=== PATIENT | male | born 1990 | race Caucasian/White ===

== ENCOUNTER 2016-12-01 08:18 | Emergency (ER) | payer OTHER ==
[~2016-12-01] VITALS: Ht 180.3 cm; Wt 111.2 kg
[~2016-12-01 08:18] MED LIST: ACYC800T PO; HYDR-3124 PO
[2016-12-01 08:21] VITALS: TEMP 36.7; Ht 180.3 cm; Wt 111.2 kg
--- NOTE | 2016-12-01 08:44 | EMERGENCY ROOM VISIT NOTE ---
History Report prepared by Jarad: Allen Deluca Under the Supervision of: Dr. Kranthi Francisco D.O. First contact with patient: 08:27 Chief Complaint: SWELLING TO EXTREMITY Stated Complaint: SWELLING TO LEFT ANKLE History of Present Illness The patient is a 26 year old male who presents to the Emergency Room with complaints of a persistent left ankle injury that occurred last night. 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 The patient states that he has a lot of pain to the ankle, and the ankle swelled up quickly after the injury. He cannot walk on the ankle, and he has had a bandage on it since the injury. The patient notes that he could not sleep well last night due to the pain. He denies any chest pain, shortness of breath, hip pain, knee pain, tingling, or current numbness. He notes that one of his toes on his left foot was a bit numb last night. The patient says that he has not had any previous injuries to the ankle. Source of History: patient Onset: Last night Position: ankle (left) Timing: other (persistent) Associated Symptoms: + numbness (a bit on one of his toes of left foot last night, no numbness currently), No SOB, No chest pain Note: Associated symptom: Left ankle pain and swelling. Denies hip pain, knee pain, tingling. Review of Systems See HPI for pertinent positives & negatives. A total of 10 systems reviewed and were otherwise negative. Past Medical & Surgical Medical Problems: (1) No chronic problems Family History No pertinent family history Social History Smoking Status: Former Smoker Drug Use: other (recovering heroin addict) Housing Status: lives with family Occupation Status: employed Current/Historical Medications No Active Prescriptions or Reported Meds Allergies Coded Allergies: No Known Allergies (Unverified , 12/01/16) Physical Exam Vital Signs Date Time Temp Pulse Resp B/P Pulse Ox O2 Delivery O2 Flow Rate FiO2 12/01/16 08:21 36.7 92 20 136/71 97 Room Air Physical Exam GENERAL: sitting up on edge of bed, mild distress, nontoxic EYE EXAM: normal conjunctiva OROPHARYNX: mucous membranes are moist NECK: supple, no nuchal rigidity, no adenopathy, non-tender LUNGS: Clear to auscultation. Normal chest wall mechanics HEART: no murmurs, S1 normal and S2 normal ABDOMEN: abdomen soft, non-tender, normo-active bowel sounds, no masses, no rebound or guarding. SKIN: no rashes and no bruising UPPER EXTREMITIES: upper extremities are grossly normal. LOWER EXTREMITIES: Full range of motion of left hip, no tenderness to palpation of left knee, left ankle with slight inversion, tenderness to palpation over posterior portion of lateral malleolus with swelling, no tenderness over arch of foot or base of fifth metatarsal. Achilles intact. DP 2/4. Gross sensations intact. NEURO EXAM: Normal sensorium. Medical Decision & Procedures ER Provider Diagnostic Interpretation: Radiology results as stated below per my review and the radiologist's interpretation: LEFT ANKLE MIN 3 VIEWS ROUTINE CLINICAL HISTORY: Left ankle pain following injury. COMPARISON: Left foot radiograph April 07, 2017. FINDINGS: Alignment of left ankle is anatomic. There is moderate lateral ankle soft tissue swelling. There is no acute fracture. Talar dome is intact. IMPRESSION: 1. No acute fracture or dislocation of the left ankle. 2. Moderate lateral ankle soft tissue swelling. Electronically signed by: Royal Fernandez M.D. 12/01/2016 9:08 AM Dictated Date/Time: 12/01/2016 9:07 AM ED Course ED COURSE: Vital signs were reviewed and showed normal. Patient declines all pain medications. The patients medical record was reviewed The above diagnostic studies were performed and reviewed. ED treatments and interventions as stated above. 0828: The patient was evaluated in room B12B. A complete history and physical examination was performed. 0915: Upon reevaluation, the patient is resting comfortably.I discussed my findings with the patient and he understands and agrees with the treatment plan. Based on the patients age, coexisting illnesses, exam and lab findings the decision to treat as an outpatient was made. The patient remained stable while under my care. The patient appeared well at the time of discharge. Medical Decision Prior records reviewed and summarized above. Triage Nursing notes reviewed and agree them. Differential diagnosis: Etiologies such as fracture, dislocation, neurovascular compromise, compartment syndrome, soft tissue injury, as well as others were entertained. 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 He notes that the majority of his pain is on the left lateral portion of his ankle. He does have some swelling. He denies any pain medications as he is a recovering addict. Neurovascularly intact. No pain in the fibular head or proximal knee. No tenderness over the metatarsals or up through the midfoot arch. Achilles is intact. X-rays of the ankle show no acute fracture. Patient was discharged to follow-up with primary care doctor to have repeat x-rays if pain persist over the next 5-7 days. Patient already has crutches and was discharged nonweightbearing until pain resolves. Discussed with Pt concerning signs and symptoms to watch out for. Pt was instructed to follow up with their PCP and discussed with the patient their option to return to the ED at anytime for persistent or worsening symptoms. The appropriate anticipatory guidance and out- patient management, including indications for return to the emergency department , were explained at length to the patient and understood. Impression Primary Impression: Ankle sprain Scribe Attestation The scribe's documentation has been prepared under my direction and personally reviewed by me in its entirety. I confirm that the note above accurately reflects all work, treatment, procedures, and medical decision making performed by me. Departure Information Dispostion Home / Self-Care Prescriptions No Active Prescriptions or Reported Meds Referrals No Doctor, Assigned (PCP) Forms HOME CARE DOCUMENTATION FORM, IMPORTANT VISIT INFORMATION Patient Instructions Ankle Sprain, My [facility] Additional Instructions Please follow up with your primary care doctor with in the next 24 hours. Any worsening of your symptoms, please return to the ED immediately. This includes worsening of your pain, numbness in your leg, weakness in your leg, fevers greater than 100.4, or any other concerning signs or symptoms from your standpoint. Please do not bear weight on your left ankle until you're completely pain-free. If he continues to have pain 5 days out from the incident you will need repeat x-rays confirm that there is no occult fracture. Please take Tylenol or Motrin as needed for pain. Problem Qualifiers Primary Impression: Ankle sprain Encounter type: initial encounter Involved ligament of ankle: unspecified ligament Laterality: left Qualified Codes: S93.402A - Sprain of unspecified ligament of left ankle, initial encounter
--- NOTE | 2016-12-01 09:09 | DIAGNOSTIC IMAGING REPORT ---
LEFT ANKLE MIN 3 VIEWS ROUTINE CLINICAL HISTORY: Left ankle pain following injury. COMPARISON: Left foot radiograph April 07, 2017. FINDINGS: Alignment of left ankle is anatomic. There is moderate lateral ankle soft tissue swelling. There is no acute fracture. Talar dome is intact. IMPRESSION: 1. No acute fracture or dislocation of the left ankle. 2. Moderate lateral ankle soft tissue swelling. Electronically signed by: Royal Fernandez M.D. 12/01/2016 9:08 AM Dictated Date/Time: 12/01/2016 9:07 AM
[2016-12-01 09:35] VITALS: BP 120/68; PULSE 71; O2SAT 98
== END 2016-12-01 09:37 | disposition home or self-care (01) ==
LOC: C.EDB 08:19
DX: S93.402A Sprain of unspecified ligament of left ankle, initial encounter (principal); W50.0XXA Accidental hit or strike by another person, initial encounter; Y93.61 Activity, american tackle football; Z87.891 Personal history of nicotine dependence